=== PATIENT | female | born 1980 | race Caucasian/White ===

== ENCOUNTER → 2020-11-04 16:26 | Outpatient (BNVA) | payer BC, SELFPAY | PROVIDERS: Family Provider Nurse Practitioner Family; Visit Provider Nurse Practitioner Family | DX: N39.0 Urinary tract infection, site not specified (principal); R31.29 Other microscopic hematuria | CPT/HCPCS: 81000; 87086 ==

== ENCOUNTER 2021-03-15 14:08 | Outpatient (CLI) | payer BC, SELFPAY ==
--- NOTE | 2021-03-15 14:14 | MM_ITS ---
WS: [id number] BILATERAL DIGITAL DIAGNOSTIC MAMMOGRAM MAMMOGRAPHY WITH CAD CLINICAL INFORMATION: BREAST SKIN CHANGES HISTORY: Left breast pain TECHNIQUE: Bilateral CC, MLO, and ML views. FINDINGS: The breasts are composed of heterogeneous fibroglandular density, which can limit the detection of sm all underlying mass lesions. No suspicious focal mass, asymmetry, calcifications, or architectural distortion. Ultrasound is pendi ng. ULTRASOUND BREAST LEFT TECHNIQUE: Ultrasound left breast focused area of concern. Right breast comparison CLINICAL INFORMATION: BREAST SKIN CHANGES FINDINGS: Ultrasound left breast. Normal underlying breast tissue bilaterally. No cystic or solid lesions. No s uspicious lesions to target for biopsy. MM/[place] [id number] IMPRESSION: BI-RADS: 2-Benign FOLLOW UP: 1 Year Follow-up Recommend return to annual screening mammography.
== END 2021-03-15 14:09 | disposition home or self-care (01) ==
LOC: RADSHAW 14:11
PROVIDERS: PCP Nurse Practitioner Family; Visit Provider Nurse Practitioner Family
DX: R23.4 Changes in skin texture (principal); N64.4 Mastodynia
CPT/HCPCS: 76642; 77066

== ENCOUNTER 2023-10-08 08:46 | Outpatient (CLI) | payer BC, SELFPAY ==
--- NOTE | 2023-10-08 09:00 | MM_ITS ---
WS: [id number] Bilateral screening 3D tomosynthesis digital mammogram, 10/08/2023 Clinical Data: SCREENING Comparison: 03/15/2021 Findings: The breast parenchymal pattern shows heterogeneous density. No spiculated masses or clustered calcifi cations are seen. There are no secondary signs of carcinoma. Impression: 1. Negative bilateral mammogram unchanged. 2. Recommend annual screening mammograms. MM/[place] [id number] BIRADS: 1-Negative FOLLOW UP: 1 Year Follow-up The CAD lap checker was used.
== END 2023-10-08 08:47 | disposition home or self-care (01) ==
LOC: MOBLMAM 08:53
PROVIDERS: PCP Nurse Practitioner Family; Visit Provider Nurse Practitioner Family
DX: Z12.31 Encounter for screening mammogram for malignant neoplasm of breast (principal)
CPT/HCPCS: 77063; 77067

== ENCOUNTER 2024-10-20 10:36 | Outpatient (CLI) | payer BC, SELFPAY ==
--- NOTE | 2024-10-20 10:40 | MM_ITS ---
WS: [id number] BILATERAL SCREENING DIGITAL TOMOSYNTHESIS MAMMOGRAM WITH CAD HISTORY: SCREENING COMPARISON: 10/08/2023 and 03/15/2021 Bilateral CC and MLO views with tomosynthesis and synthetic mammography submitted. Computer aided det ection analyzed. Breast composition: The breasts are heterogeneously dense, which may obscure small masses. No suspici ous masses, microcalcifications or architectural distortion. MM/MM scr BI tomosynthesis [id number] IMPRESSION: BI-RADS: 2 - Benign FOLLOW UP: 1 Year Follow-up
== END 2024-10-20 10:37 | disposition home or self-care (01) ==
LOC: MOBLMAM 10:37
PROVIDERS: PCP Nurse Practitioner Family; Visit Provider Nurse Practitioner Family
DX: Z12.31 Encounter for screening mammogram for malignant neoplasm of breast (principal); R92.333 Mammographic heterogeneous density, bilateral breasts
CPT/HCPCS: 77063; 77067